=== PATIENT | female | born 1985 | race Caucasian/White ===

== ENCOUNTER 2016-11-04 12:40 | Outpatient (CLI) | payer OTHER ==
[~2016-11-04] VITALS: Ht 165.1 cm; Wt 73.6 kg
[~2016-11-04 12:40] MED LIST: [UNRECOGNIZED DRUG - OTHER]
[2016-11-04 13:56] LABS: ADD SCAN DIFF NO
[2016-11-04 14:00] LABS: BASOPHILS % 0.2 % (0.0-2.0); EOSINOPHILS # 0.1 10^3/ul (0.0-0.5); EOSINOPHILS % 0.4 % (0.0-7.0); HEMATOCRIT 34.1 % (37.0-47.0); HEMOGLOBIN 11.4 g/dl (12.0-16.0); LYMPHOCYTES # 1.4 10^3/ul (0.8-2.9); LYMPHOCYTES % 10.1 % (15.0-51.0); MEAN CORPUSCULAR HEMOGLOBIN 30.6 pg (29.0-33.0); MEAN CORPUSCULAR HGB CONC 33.4 g/dl (32.0-37.0); MEAN CORPUSCULAR VOLUME 91.4 fl (82.0-101.0); MEAN PLATELET VOLUME 10.5 fl (7.4-10.4); MONOCYTE # 0.7 10^3/ul (0.3-0.9); MONOCYTES % 5.3 % (0.0-11.0); NEUTROPHIL # 11.4 10^3/ul (1.6-7.5); NEUTROPHILS % 83.5 % (39.0-77.0); PLATELET COUNT 311 10^3/UL (140-415); RED BLOOD COUNT 3.73 10^6/ul (4.20-5.40); RED CELL DISTRIBUTION WIDTH 12.1 % (11.5-14.5); WHITE BLOOD COUNT 13.6 10^3/ul (4.8-10.8)
[2016-11-04 14:18] LABS: ALBUMIN 4.5 g/dl (3.3-4.9); ALBUMIN/GLOBULIN RATIO 1.55; BILIRUBIN,INDIRECT 0.5 mg/dl (0-1.1); BILIRUBIN,TOTAL 0.5 mg/dl (0.2-1.3); CALCIUM 9.5 mg/dl (8.4-10.2); CREATININE 0.42 mg/dl (0.44-1.00); POTASSIUM 4.2 mmol/L (3.5-5.1); TOTAL PROTEIN 7.4 g/dl (6.1-8.1)
[2016-11-04 14:20] VITALS: Ht 165.1 cm; Wt 73.6 kg
[2016-11-04 14:21] VITALS: BP 103/67; PULSE 67; RESP 18
[2016-11-04] MEDS ORDERED: PREN-93 PO (14:23)
--- NOTE | 2016-11-04 14:51 | QN ---
Documentation Comment 31 y/o at 29+ weeks with nausea and dizziness Afebrile VSS Abdomen soft NT Strip AGA Labs normal Patient feels better and symptoms resolved Stable D/C home. KATIA MCALLISTER MD Nov 04, 2016 14:51
--- NOTE | 2016-11-04 15:01 | TRIAGE ---
OB Triage Datetime Report Generated by CPN: 11/04/2016 15:00 Datetime: 11/04/2016 14:32 Labor Evaluation Frequency: 0 Monitor Mode: External Duration (sec)2399: 0 Resting Tone [place]: Relaxed Heart Rate FHR Baseline Rate: 150 Monitor Mode: External US FHR Baseline Changes: No Baseline Change Variability: Moderate 6-25 bpm Accelerations: 15X15 Decelerations: None Category: Category I Vaginal Exam Membrane Status: Intact Datetime: 11/04/2016 14:30 Maternal Assessment Level of Consciousness: Fully Conscious DTR's/Clonus: DTRs 2+; No Clonus Headache: Denies Blurred Vision: No Respiratory Effort: Unlabored Breath Sounds, Left: Clear and Equal Breath Sounds, Right: Clear and Equal Nausea/Vomiting: Denies RUQ Epigastric Pain: Denies Facial Edema: None Labor Evaluation Frequency: 0 Monitor Mode: External Duration (sec)2399: 0 Resting Tone [place]: Relaxed Heart Rate FHR Baseline Rate: 150 Monitor Mode: External US FHR Baseline Changes: No Baseline Change Variability: Moderate 6-25 bpm Accelerations: 15X15 Decelerations: None Category: Category I Pain Assessment Pain Scale: 0 Pain Presence: None/Denies Pain Type: N/A Pain Goal: 0 Pain Relief Measures: Comfort Measures Vaginal Exam Membrane Status: Intact Datetime: 11/04/2016 14:20 Maternal Assessment Level of Consciousness: Fully Conscious DTR's/Clonus: DTRs 2+; No Clonus Headache: Denies Blurred Vision: No Respiratory Effort: Unlabored Breath Sounds, Left: Clear and Equal Breath Sounds, Right: Clear and Equal Nausea/Vomiting: Denies RUQ Epigastric Pain: Denies Facial Edema: None Labor Evaluation Frequency: 0 Monitor Mode: External Duration (sec)2399: 0 Resting Tone [place]: Relaxed Heart Rate FHR Baseline Rate: 150 Monitor Mode: External US FHR Baseline Changes: No Baseline Change Variability: Moderate 6-25 bpm Accelerations: 15X15 Decelerations: None Category: Category I Pain Assessment Pain Scale: 0 Pain Presence: None/Denies Pain Type: N/A Pain Goal: 0 Vaginal Exam Membrane Status: Intact Datetime: 11/04/2016 13:25 Time of Arrival: 11/04/2016 13:25 Arrived By: Ambulatory Arrived From: Office Chief Complaint: NAUSEA _ VOMITING Movement: Present Contractions: Denies/Absent Contractions: 0 Rupture of Membranes: Denies Vaginal Bleeding: None Vaginal Discharge: Denies Recent Sexual Intercouse: Denies Abdominal Trauma: Not Applicable Patient Complaints: None Time Provider Notified: 11/04/2016 14:33 Provider Notified: ESVIN
[2016-11-04 15:03] LABS: ADD UMIC YES; URINE BILIRUBIN (Dip) NEGATIVE (NEGATIVE); URINE BLOOD (Dip) NEGATIVE (NEGATIVE); URINE COLOR LT. YELLOW (YELLOW); URINE GLUCOSE (Dip) NEGATIVE (NEGATIVE); URINE KETONES (Dip) NEGATIVE (NEGATIVE); URINE LEUKOCYTE ESTERASE (Dip) TRACE (NEGATIVE); URINE NITRITE (Dip) NEGATIVE (NEGATIVE); URINE TOTAL PROTEIN (Dip) NEGATIVE (NEGATIVE); URINE UROBILINOGEN (Dip) 0.2 E.U./dL (0.1-1.0)
[2016-11-04 15:39] LABS: BACTERIA,URINE MODERATE; SQUAMOUS EPITHELIAL CELL,UR MODERATE; URINE RBCS 0-2 /HPF (0)
== END 2016-11-04 15:00 | disposition home or self-care (01) ==
LOC: OBT 12:40 → L-D 12:44 → OBT 15:00
PROVIDERS: ATTEND Obstetrics & Gynecology
DX: O26.893 Other specified pregnancy related conditions, third trimester (principal); R42 Dizziness and giddiness; O21.9 Vomiting of pregnancy, unspecified; Z3A.29 29 weeks gestation of pregnancy
CPT/HCPCS: 36415; 80053; 81001; 82150; 83690; 85025; Z7500; G0463

== ENCOUNTER 2016-11-28 21:32 | Outpatient (CLI) | payer OTHER ==
[~2016-11-28] VITALS: Ht 165.1 cm; Wt 73.3 kg
[~2016-11-28 21:32] MED LIST changes: +PREN-93 PO; -[UNRECOGNIZED DRUG - OTHER]
[2016-11-28 22:10] VITALS: Ht 165.1 cm; Wt 73.3 kg
[2016-11-28] MEDS ORDERED: LACTATED RINGER'S 1,000 ML IV ONE (22:30)
--- NOTE | 2016-11-28 23:12 | PN ---
Triage Information Date/Time 11/28/16, 11pm Weeks of Gestation 32.5 wks : 5 Para: 3 Diabetes: gestational Diabetes management: diet controlled Objective Heart Rate: 130's Heart Rate Comments Cat I Contractions: >10 Minutes Apart Results/Medications Medications Current Medications Lactated Ringer's (Lr) 1,000 ml @ 1,000 mls/hr Q1H ONCE IV ; Start 11/28/16 at 22:30; Stop 11/28/16 at 23:29 Assessment/Plan 31 yo P3 @ 32.5 wks, w irreg ctx - reassuring status - not in PTL - will d/c home after hydration MATHIEU JEAN-BAPTISTE MD Nov 28, 2016 23:09
[2016-11-29] LABS: ADD UMIC YES; UR AMORPHOUS CRYSTAL MODERATE /HPF (NONE SEEN); UR ASCORBIC ACID NEGATIVE (NEGATIVE); UR BACTERIA MANY /HPF (NONE SEEN); UR BILIRUBIN (Dip) NEGATIVE (NEGATIVE); UR BLOOD (Dip) NEGATIVE (NEGATIVE); UR CLARITY CLOUDY (CLEAR); UR COLOR YELLOW (YELLOW); UR GLUCOSE (Dip) NEGATIVE (NEGATIVE); UR KETONES (Dip) NEGATIVE (NEGATIVE); UR LEUKOCYTE ESTERASE (Dip) 2+ Leu/ul (NEGATIVE); UR NITRITE (Dip) NEGATIVE (NEGATIVE); UR RBC 2 /HPF (0-5); UR SPECIFIC GRAVITY (Dip) 1.009 (1.003-1.030); UR SQUAMOUS EPITHELIAL CELL FEW /HPF (FEW); UR TOTAL PROTEIN (Dip) NEGATIVE (NEGATIVE); UR UROBILINOGEN (Dip) NEGATIVE (NEGATIVE)
--- NOTE | 2016-11-29 01:08 | TRIAGE ---
OB Triage Datetime Report Generated by CPN: 11/29/2016 01:07 Datetime: 11/29/2016 00:19 Labor Evaluation Frequency: X1 Duration (sec)2399: 30-40 Heart Rate FHR Baseline Rate: 130 Monitor Mode: External US Variability: Moderate 6-25 bpm Accelerations: 15X15 Decelerations: None Category: Category I Datetime: 11/28/2016 23:00 Labor Evaluation Frequency: x1 Monitor Mode: External Duration (sec)2399: 30 Quality: Mild Pattern: Normal: <= 5 Contractions in 10 Minutes Resting Tone [place]: Relaxed Heart Rate FHR Baseline Rate: 140 Monitor Mode: External US Variability: Moderate 6-25 bpm Accelerations: 15X15 Decelerations: None Category: Category I Datetime: 11/28/2016 22:30 Time Provider Notified: 11/28/2016 22:30 Labor Evaluation Frequency: x1 Monitor Mode: External Duration (sec)2399: 30 Pattern: Normal: <= 5 Contractions in 10 Minutes Resting Tone [place]: Relaxed Heart Rate FHR Baseline Rate: 150 Monitor Mode: External US Variability: Moderate 6-25 bpm Accelerations: 15X15 Decelerations: None Category: Category I Datetime: 11/28/2016 22:05 Time of Arrival: 11/28/2016 22:30 EGA: 32.5 Arrived By: Wheelchair Arrived From: Home Chief Complaint: Cramping Movement: Present Contractions: Denies/Absent Time Contractions Began: 11/28/2016 16:00 Rupture of Membranes: Denies Vaginal Bleeding: None Vaginal Discharge: Denies Recent Sexual Intercouse: Denies Abdominal Trauma: Not Applicable Patient Complaints: Cramping Time Provider Notified: 11/28/2016 22:30 Provider Notified: Dr Mejia Initial Plan: IV HYDRATION, UA Datetime: 11/28/2016 22:04 Time of Arrival: 11/28/2016 21:34 Datetime: 11/28/2016 21:55 Maternal Assessment Headache: Denies Datetime: 11/28/2016 21:54 Monitor Mode: External Contraction Comments: applied Monitor Mode: External US Comments: applied Datetime: 11/28/2016 00:00 Stage of : OB Triage Datetime: 11/04/2016 14:15 Labor Evaluation Frequency: 0 Monitor Mode: External Duration (sec)2399: 0 Resting Tone [place]: Relaxed Heart Rate FHR Baseline Rate: 145 Monitor Mode: External US FHR Baseline Changes: No Baseline Change Variability: Moderate 6-25 bpm Accelerations: 15X15 Decelerations: None Category: Category I
== END 2016-11-29 00:50 | disposition home or self-care (01) ==
LOC: OBT 21:32 → L-D 21:32 → OBT 11-29 00:50
PROVIDERS: ATTEND Obstetrics & Gynecology
DX: O24.410 Gestational diabetes mellitus in pregnancy, diet controlled (principal); O62.9 Abnormality of forces of labor, unspecified; Z3A.32 32 weeks gestation of pregnancy
CPT/HCPCS: 81001; 96360; J7120; Z7500; G0463

== ENCOUNTER 2016-12-27 08:23 | Inpatient (IN) | payer OTHER ==
[~2016-12-27] VITALS: Ht 165.1 cm; Wt 79.3 kg
[2016-12-27 08:45] VITALS: BP 136/75; PULSE 80; Ht 165.1 cm; Wt 79.3 kg
[2016-12-27] MEDS: LACTATED RINGER'S 1,000 ML IV SCH (09:33)
[2016-12-27] MEDS ORDERED: LACTATED RINGER'S 1,000 ML IV SCH (13:44)
[2016-12-27] MEDS ORDERED: MISOPROSTOL 200 MCG TAB PR PRN (14:00)
[2016-12-27] MEDS ORDERED: METHYLERGONOVINE 0.2 MG INJ IM PRN (14:00)
[2016-12-27] MEDS ORDERED: CARBOPROST 250 MCG INJ IM PRN (14:00)
[2016-12-27] MEDS ORDERED: CEFAZOLIN 2 GM/50 ML (PMX) 50 ML IV SCH (14:00)
[2016-12-27] MEDS ORDERED: OXYTOCIN 30 UNITS/LR 500 ML IV PRN (14:00)
--- NOTE | 2016-12-27 14:29 | PERINOTE ---
Date/Time of Note Date/Time of Note DATE: 12/27/16 TIME: 14:25 Assessment/Recommendations Other Assessments Late patient with cerclage in situ, three prior deliveries Latent labor with UCs every 4-5 minutes Recommendations: This patient should be delivered by repeat delivery and the cerclage removed now, due to early labor and GA near term in a patient with three prior deliveries. OB Subjective Free Text/Dictaton Asked for an opinion regarding thei patient's delivery plan HD# 1 IUP @ 36W6 Current Medications Current Medications Lactated Ringer's 1,000 ml @ 125 mls/hr Q8H IV Last administered on 12/27/16t 09:33; Admin Dose 125 MLS/HR; Start 12/27/16 at 09:30 Lactated Ringer's 1,000 ml @ 125 mls/hr Q8H IV ; Start 12/27/16 at 13:44 Cefazolin Sodium/ Dextrose 50 ml @ 100 mls/hr ONCE IV ; Start 12/27/16 at 14:00 Oxytocin/Lactated Ringer's 500 ml @ 0 mls/hr ONCE PRN IV For Hemorrhage Management; Start 12/27/16 at 14:00 Methylergonovine Maleate (Methergine) 0.2 mg ONCE PRN IM VAGINAL BLEEDING; Start 12/27/16 at 14:00 Carboprost Tromethamine (Hemabate) 250 mcg ONCE PRN IM VAGINAL BLEEDING; Start 12/27/16 at 14:00 Misoprostol (Cytotec) 1,000 mcg ONCE PRN MO VAGINAL BLEEDING; Start 12/27/16 at 14:00 OB Admission Exam Physical Exam Vitals: Vital Signs Date Time Temp Pulse Resp B/P Pulse Ox O2 Delivery O2 Flow Rate FiO2 12/27/16 08:45 98.1 80 136/75 Abdomen: WNL Contractions on Admission: < 5 Minutes Apart Copies To: CC: KATIA MCALLISTER MD, MARIE H MD Dec 27, 2016 14:29
[2016-12-27 14:49] LABS: BASOPHILS % 0.2 % (0.0-2.0); EOSINOPHILS % 0.5 % (0.0-7.0); HEMATOCRIT 27.5 % (37.0-47.0); HEMOGLOBIN 8.9 g/dl (12.0-16.0); LYMPHOCYTES # 1.5 10^3/ul (0.8-2.9); LYMPHOCYTES % 24.7 % (15.0-51.0); MEAN CORPUSCULAR HEMOGLOBIN 26.5 pg (29.0-33.0); MEAN CORPUSCULAR HGB CONC 32.4 g/dl (32.0-37.0); MEAN CORPUSCULAR VOLUME 81.8 fl (82.0-101.0); MONOCYTE # 0.5 10^3/ul (0.3-0.9); MONOCYTES % 7.4 % (0.0-11.0); NEUTROPHIL # 4.1 10^3/ul (1.6-7.5); NEUTROPHILS % 66.7 % (39.0-77.0); PLATELET COUNT 207 10^3/UL (140-415); RED BLOOD COUNT 3.36 10^6/ul (4.20-5.40); RED CELL DISTRIBUTION WIDTH 14.6 % (11.5-14.5); WHITE BLOOD COUNT 6.2 10^3/ul (4.8-10.8)
[2016-12-27 15:06] LABS: INR 0.95; PROTIME 12.7 Sec (12.2-14.2)
[2016-12-27 15:07] LABS: PARTIAL THROMBOPLASTIN TIME 24.9 Sec (25.0-35.0)
[2016-12-27] MEDS ORDERED: EPHEDrine SULFATE 50 MG/5 ML SYG ONE (20:24)
[2016-12-27] MEDS ORDERED: ONDANSETRON 4 MG INJ ONE (20:24)
[2016-12-27] MEDS ORDERED: OXYTOCIN 10 UNIT INJ ONE (20:24)
[2016-12-27] MEDS ORDERED: morphine SULFATE/PF (10 MG/10 ML) INJ ONE (20:24)
[2016-12-27] MEDS ORDERED: METOCLOPRAMIDE 10 MG INJ ONE (20:24)
[2016-12-27] MEDS ORDERED: OXYTOCIN 30 UNITS/LR 500 ML IV ONE (20:24)
[2016-12-27] MEDS ORDERED: EPHEDrine SULFATE 50 MG/5 ML SYG IV PRN (22:00)
[2016-12-27] MEDS ORDERED: DIPHENHYDRAMINE 50 MG INJ IV PRN (22:00)
[2016-12-27] MEDS ORDERED: morphine SULFATE/PF (10 MG/10 ML) INJ SPINAL ONE (22:00)
[2016-12-27] MEDS ORDERED: morphine 2 MG INJ IV PRN (22:00)
[2016-12-27] MEDS ORDERED: ONDANSETRON 4 MG INJ IV PRN (22:00)
[2016-12-27] MEDS ORDERED: morphine 4 MG/ML VIAL IV PRN (22:00)
[2016-12-27] MEDS ORDERED: NALOXONE (0.4 MG/ML) INJ IV PRN (22:00)
[2016-12-27] MEDS ORDERED: OXYTOCIN 30 UNITS/LR 500 ML IV SCH (22:30)
[2016-12-27] MEDS: KETOROLAC 30 MG INJ IV PRN (23:59)
[2016-12-28] VITALS (7 sets, daily range): BP systolic 115–147; BP diastolic 72–83; PULSE 66–84; RESP 18–19
[2016-12-28] MEDS ORDERED: OXYTOCIN 30 UNITS/LR 500 ML IV PRN (00:30)
[2016-12-28] MEDS ORDERED: CARBOPROST 250 MCG INJ IM PRN (00:30)
[2016-12-28] MEDS ORDERED: MISOPROSTOL 200 MCG TAB PR PRN (00:30)
[2016-12-28] MEDS ORDERED: LANOLIN 7 GM TUBE TOP PRN (00:30)
[2016-12-28] MEDS ORDERED: METHYLERGONOVINE 0.2 MG INJ IM PRN (00:30)
--- NOTE | 2016-12-28 03:10 | PREOPHP ---
DATE OF ADMISSION: 12/27/2016 HISTORY OF PRESENT ILLNESS: A 31-year-old female, 5, para 3-0-1-3, estimated date of delivery 01/18/2017 at 36 weeks and 6 days gestation presented with labor contractions. course significant for cerclage placement. Also, gestational diabetes. PAST MEDICAL HISTORY: Unremarkable. PAST SURGICAL HISTORY: section x3 and a cholecystectomy. ALLERGIES: NO KNOWN ALLERGIES. FAMILY HISTORY: Noncontributory. PHYSICAL EXAMINATION: VITAL SIGNS: The patient is afebrile. Vital signs stable. HEENT: Within normal limits. NECK: Within normal limits. CHEST: Within normal limits. ABDOMEN: Soft, nontender, and gravid. EXTREMITIES: Within normal limits. NEUROLOGIC: Within normal limits. ASSESSMENT AND PLAN: On external monitoring, contractions are noted. The patient was evaluated by perinatologist, Dr. Lopes ([facility]), who recommends to go on with delivery by repeat section and removal of cerclage. The patient also desires surgical sterilization by bilateral tubal ligation. Risks, benefits, and alternatives of the procedures were explained to the patient. The patient has been counseled about all of her contraceptive options including all methods of sterilization. It was explained to the patient that with bilateral tubal ligation, there is a chance of failure resulting in ectopic and intrauterine . After counseling, the patient said she understood and gave informed consent for the procedures. Dictated By: Henry Mejia MD /will/catarina /Document#: [id number] CHRISTIANE
[2016-12-28] MEDS: OXYTOCIN 30 UNITS/LR 500 ML IV SCH ×2 (03:27→04:16)
[2016-12-28 07:08] LABS: BASOPHILS % 0.2 % (0.0-2.0); HEMATOCRIT 29.2 % (37.0-47.0); HEMOGLOBIN 9.2 g/dl (12.0-16.0); LYMPHOCYTES # 1.3 10^3/ul (0.8-2.9); LYMPHOCYTES % 10.6 % (15.0-51.0); MEAN CORPUSCULAR HEMOGLOBIN 25.8 pg (29.0-33.0); MEAN CORPUSCULAR HGB CONC 31.5 g/dl (32.0-37.0); MEAN PLATELET VOLUME 12.3 fl (7.4-10.4); MONOCYTE # 0.7 10^3/ul (0.3-0.9); MONOCYTES % 5.2 % (0.0-11.0); NEUTROPHIL # 10.3 10^3/ul (1.6-7.5); NEUTROPHILS % 83.5 % (39.0-77.0); PLATELET COUNT 206 10^3/UL (140-415); RED BLOOD COUNT 3.56 10^6/ul (4.20-5.40); RED CELL DISTRIBUTION WIDTH 14.4 % (11.5-14.5); WHITE BLOOD COUNT 12.4 10^3/ul (4.8-10.8)
[2016-12-28] MEDS: LACTATED RINGER'S 1,000 ML IV SCH ×3 (08:03→16:16)
[2016-12-28] MEDS: SENNA/DOCUSATE NA (8.6MG/50MG) TAB PO SCH ×2 (08:27→21:37)
[2016-12-28] MEDS: KETOROLAC 30 MG INJ IV PRN (11:10)
--- NOTE | 2016-12-28 19:19 | QN ---
Documentation Comment No complaint Afebrile VSS Abdomen soft ND POD #1 Stable Ambulate Advance diet. KATIA MCALLISTER MD Dec 28, 2016 19:19
[2016-12-28] MEDS: IBUPROFEN 800 MG TAB PO SCH (21:36)
[2016-12-28] MEDS: FERROUS SULFATE (EC) 325 MG TAB PO SCH (21:37)
[2016-12-28] MEDS ORDERED: OXYCODONE/ACETAMINOPHEN (5/325) TAB PO PRN (22:00)
[2016-12-29 04:00] VITALS: BP 113/66; PULSE 77; RESP 18
[2016-12-29] MEDS: IBUPROFEN 800 MG TAB PO SCH ×3 (05:31→21:45)
[2016-12-29 08:00] VITALS: BP 119/82; PULSE 76; RESP 18
[2016-12-29] MEDS: SENNA/DOCUSATE NA (8.6MG/50MG) TAB PO SCH ×2 (09:33→21:45)
[2016-12-29] MEDS: FERROUS SULFATE (EC) 325 MG TAB PO SCH ×3 (09:34→21:45)
[2016-12-29] MEDS: OXYCODONE/ACETAMINOPHEN (5/325) TAB PO PRN ×2 (09:39→18:35)
--- NOTE | 2016-12-29 14:57 | QN ---
Documentation Comment Progress Note POD #2 Pt feels good and has excellent pain management. + w/o a problem and milk is starting to come in. + flatus. T= 98.0 BP 119/82 Fundus is firm. Incision is clean, dry and intact.Hadley are present. Lochia is minimal. Ext NT, no edema. WBC 12.4 Hgb 9.2 Plts 206K P: Plan d/c tomorrow. JUAN PABLO HARRIS MD Dec 29, 2016 14:57
[2016-12-29 16:00] VITALS: BP 115/76; PULSE 71; RESP 18
[2016-12-29 20:00] VITALS: BP 94/61; PULSE 77; RESP 18
[2016-12-30] MEDS: IBUPROFEN 800 MG TAB PO SCH ×3 (05:57→21:34)
[2016-12-30] MEDS: OXYCODONE/ACETAMINOPHEN (5/325) TAB PO PRN ×2 (07:22→15:29)
[2016-12-30 08:00] VITALS: BP 113/61; PULSE 78; RESP 18
[2016-12-30] MEDS: SENNA/DOCUSATE NA (8.6MG/50MG) TAB PO SCH ×2 (08:37→21:34)
[2016-12-30] MEDS: FERROUS SULFATE (EC) 325 MG TAB PO SCH ×3 (08:37→21:33)
[2016-12-30] MEDS ORDERED: DIPHTH/TET/ACEL PERTUSS (ADULT) 0.5 ML VIAL IM* ONE (09:00)
[2016-12-30 16:00] VITALS: BP 124/77; PULSE 20; RESP 18
[2016-12-30 20:10] VITALS: BP 119/73; PULSE 76; RESP 18
[2016-12-30] MEDS ORDERED: IBUP800T25 PO (20:38)
--- NOTE | 2016-12-30 20:39 | DS ---
Date/Time of Note Date/Time of Note DATE: 12/30/16 TIME: 20:38 Obstetrical Discharge Record Final Diagnosis Final Diagnosis: delivered Section Section: Repeat Complications Labor Condition on Discharge Physical Assessment Voiding: Yes Bowel Movement: Yes Breast: Soft, non-tender Fundus: Firm Abdomen and Incision: Incision intact Calf Tenderness: No Patient Condition: Stable KATIA MCALLISTER MD Dec 30, 2016 20:39
--- NOTE | 2017-01-01 10:06 | OPR ---
DATE OF OPERATION: 12/27/2016 PREOPERATIVE DIAGNOSIS: at 36 weeks and 6 days with previous x3 and cerclage, labor contractions, and voluntary sterilization. POSTOPERATIVE DIAGNOSIS: at 36 weeks and 6 days with previous x3 and cerclage, labor contractions, and voluntary sterilization. OPERATION: Repeat low-transverse . Bilateral tubal ligation. Removal of cerclage. SURGEON: Henry Mejia MD. PHYSICIAN PEDIATRICIAN: Rodolfo Sheehan MD. ANESTHESIA: Spinal. ANESTHESIOLOGIST: Dr. Daley. PROCEDURE: The patient was taken to the operating room and placed on the operating table after successful spinal anesthesia was given. The patient was placed in a supine position. The area was prepared and draped in the usual sterile fashion. Spinal anesthesia was assessed and was satisfactory. Using scalpel, a Pfannenstiel incision was made about 2 fingerbreadths above the symphysis pubis. Incision was carried to the fascia. The fascia was incised and the femoral head with Bowman scissors. Two Bouchra's were used to separate the fascia over the muscles of the sigmoid down to peritoneum. Peritoneum was secured with 2 Mary's and incised with Metzenbaum scissors. Using a scalpel, a small transverse incision was made in the lower extremities to supplement entry into the uterine cavity. Attention was directed to extend the incision. The baby was delivered from cephalic position. After suctioned clear from the fluid [____]. Apgars were 9 and 9. The placenta was delivered without difficulty. This was closed with number 1 Monocryl continuous lock type fashion. Hemostasis, both ovaries and tubes. The right fallopian tube was grasped with Norm clamp, using 0 plain suture ligature, and a 5-cm segment of the right fallopian tube was then doubly ligated. Using Metzenbaum scissors, a portion of the right fallopian tube above the ligated area was excised and sent to pathology. Separate procedure was repeated on left fallopian tube. The peritoneum was closed with 2-0 Vicryl continuous. The fascia was closed with 0 Vicryl continuous in 2 segments. The subcutaneous tissue was reapproximated with 2-0 plain. The skin was closed richard. ESTIMATED BLOOD LOSS: Five hundred mL. COMPLICATIONS: None. COUNTS: All counts were correct. The patient was subsequently placed in dorsal lithotomy position. Using scissors, cerclage was removed from the cervix. The patient was transferred to recovery room in stable condition. Dictated By: Henry Mejia MD /will/connie /Document#: [id number]
== END 2016-12-30 21:40 | disposition home or self-care (01) | DRG 765 ==
LOC: OBT 08:23 → L-D 08:24 → OBT 13:46 → L-D 13:48 → PP1 12-28 00:50
PROVIDERS: ADMIT Obstetrics & Gynecology; ATTEND Obstetrics & Gynecology
PROC: 0UL70ZZ Occlusion of Bilateral Fallopian Tubes, Open Approach (ICD-10-PCS; 2016-12-27)
PROC: 10D00Z1 Extraction of Products of Conception, Low, Open Approach (ICD-10-PCS; principal; 2016-12-27 20:45)
PROC: 3E00X4Z Introduction of Serum, Toxoid and Vaccine into Skin and Mucous Membranes, External Approach (ICD-10-PCS; 2016-12-30)
DX: O34.211 Maternal care for low transverse scar from previous cesarean delivery (principal); O60.14X0 Preterm labor third trimester with preterm delivery third trimester, not applicable or unspecified; N85.8 Other specified noninflammatory disorders of uterus; Z3A.36 36 weeks gestation of pregnancy; Z23 Encounter for immunization; Z30.2 Encounter for sterilization; Z37.0 Single live birth
CPT/HCPCS: 36415; 82962; 85025; 85610; 85730; 86592; 86850; 86900; 86901; 86920; 88302; 90715; 94760; 96360; 96361; 96375; 99464; G0463; J0690; J1885; J2274; J2405; J2590; J2765; J7120